=== PATIENT | male | born 1950 | race Caucasian/White ===

== ENCOUNTER → 2024-04-12 | Outpatient (CLI) | payer OTHER ==
--- NOTE | 2024-04-13 15:51 | HMCIMG ---
NM BONE SCAN WHOLE BODY REASON: malignant neoplasm of prostate. COMPARISON: None TECHNIQUE: Bone scan was performed with 24 mCi of technetium MDP through intravenous route. FINDINGS: Degenerative changes are seen. No scintigraphic evidence of bone metastases is seen. IMPRESSION: No scintigraphic evidence of bone metastases is seen.
== END | disposition home or self-care (01) ==
LOC: RAH 13:47
PROVIDERS: ATTEND Urology
DX: C61 Malignant neoplasm of prostate (principal)
CPT/HCPCS: 78306; A9503